=== PATIENT | female | born 1930 | race Caucasian/White ===

== ENCOUNTER → 2017-06-26 | Outpatient (CLI) | payer OTHER ==
[~2017-06-26] MED LIST: ALEVE220 M1 PO; AMARYL4 MG PO; ASPIRIN EC81 M1 PO; ATORVASTATIN CA40 MG PO; CLOPIDOGREL75 MG; COZAAR 25 MG TA25 M2; LISINOPRIL10 MG PO; LISINOPRIL20 MG PO; METOPROLOL SUCC25 M1; NORCO 5-325 TA1 EACH PO; OXYBUTYNIN 5 MG5 M1 PO; SIMVASTATIN40 MG; VITAMIN D2000 UNIT PO
--- NOTE | ~2017-06-26 | 2DMMODE ---
[facility] [place] [address] 2 D/M-MODE ECHOCARDIOGRAM Name: CHERRIE MCLEAN [facility] #: [facility] [id number] Admission: 06/26/17 Attend Phys: Milad Lane, Discharge: Date of : 32 Date of Service: 06/26/17 1208 Report #: [id number] THIS REPORT FOR: //name// APPROVED REPORT Study performed: 06/26/2017 09:59:24 EXAM: Comprehensive 2D, Doppler, and color-flow Echocardiogram Patient Location: Out-Patient Status: routine BSA: 1.52 HR: 70 bpm BP: 158/83 mmHg Rhythm: NSR Other Information Study Quality: Good Indications CAD Hypertension/HDD Aortic stenosis. Hx: DM, HLD, Stents, ICM 2D Dimensions RVDd: 30.63 mm LVEF(%): 77.14 (>50%) IVSd: 11.23 (7-11mm) LVOT Diam: 18.09 (18-24mm) LVDd: 38.96 mm PWd: 8.95 (7-11mm) Ascending Ao: 29.68 (22-36mm) LVDs: 21.35 (25-40mm) Aortic Root: 28.94 mm Jaime's LVEF: 77.14 % Volumes Left Atrial Volume (Systole) Single Plane 4CH: 81.12 mL Single Plane 2CH: 49.34 mL LA ESV Index: 45.00 mL/m2 Aortic Valve AoV Peak Edvin.: 3.02 m/s AO Peak Gr.: 36.55 mmHg LVOT Max P.93 mmHg AO Mean Gr.: 17.80 mmHg AO V2 Mean: 1.97 m/s LVOT Max V: 1.22 m/s AO V2 VTI: 68.04 cm KEANU Vmax: 1.03 cm2 [facility] [place] [address] 2 D/M-MODE ECHOCARDIOGRAM Name: CHERRIE MCLEAN Room #: REG [facility]#: [id number] Admission: 06/26/17 Attend Phys: Milad Lane, Discharge: Date of : 32 Date of Service: 06/26/17 1208 Report #: [id number] Mitral Valve MV Peak Gr.: 31.50 mmHg MV Mean Gr.: 11.36 mmHg E/A Ratio: 0.6 MV Decel. Time: 923.55 ms MV E Max Edvin.: 1.28 m/s MV A Edvin.: 2.15 m/s MV Max Edvin.: 2.81 m/s MV Mean Edvin.: 1.59 m/s MV VTI: 632.29 mm MV PHT: 267.83 ms IVRT: 83.04 ms Pulmonary Valve PV Peak Edvin.: 1.50 m/s PV Peak Gr.: 8.99 mmHg Pulmonary Vein P Vein S: 0.83 m/s P Vein A: 0.34 m/s P Vein D: 0.45 m/s P Vein A Dur.: 156.9 msec P Vein S/D Ratio: 1.84 Tricuspid Valve TR Peak Edvin.: 2.65 m/s RAP Estimate: 5.00 mmHg TR Peak Gr.: 28.13 mmHg PA Pressure: 33.00 mmHg Left Ventricle The left ventricle is normal size. Mild basal septal hypertrophy is present. Left ventricular systolic function is hyperdynamic. LVEF is >70%. Mild diastolic dysfunction is present (impaired relaxation pattern). Right Ventricle The right ventricle is normal size. The right ventricular systolic function is normal. Atria Left atrium is dilated. The right atrium size is normal. Aortic Valve Aortic valve is moderately thickened and calcified. Trace aortic regurgitation. There is mild to moderate valvular aortic stenosis. Calculated aortic valve area is 1.0 cm2 with maximum pressure gradient of 37 mmHg and mean pressure gradient of 18 mmHg. Mitral Valve [address] [address] 2 D/M-MODE ECHOCARDIOGRAM Name: CHERRIE MCLEAN Room #: REG DORIS Montgomery#: [id number] Admission: 06/26/17 Attend Phys: Milad Lane, Discharge: Date of : 32 Date of Service: 06/26/17 1208 Report #: [id number] There is severe mitral annular calcification. Mitral valve leaflets are moderately thickened. Mild mitral regurgitation. Moderate - severe mitral stenosis. Tricuspid Valve The tricuspid valve is normal in structure. Trace tricuspid regurgitation. Estimated PAP 33 mmHg. Pulmonic Valve The pulmonary valve is normal in structure. Trace pulmonic regurgitation. Great Vessels The aortic root is normal in size. The ascending aorta is normal in size. IVC is normal in size and collapses >50% with inspiration. Pericardium There is no pericardial effusion. <Conclusion> The left ventricle is normal size. Mild basal septal hypertrophy is present. LVEF is >70%. Mild diastolic dysfunction is present (impaired relaxation pattern). The right ventricle is normal size. Left atrium is dilated. Aortic valve is moderately thickened and calcified. Trace aortic regurgitation. There is mild to moderate valvular aortic stenosis. Calculated aortic valve area is 1.0 cm2 with maximum pressure gradient of 37 mmHg and mean pressure gradient of 18 mmHg. There is severe mitral annular calcification. Mitral valve leaflets are moderately thickened. Mild mitral regurgitation. Trace tricuspid regurgitation. Estimated PAP 33 mmHg. The aortic root is normal in size. There is no pericardial effusion. <ELECTRONICALLY SIGNED> By: Milad Lane MD, FACC 06/26/[address] MD, FACC /INF
== END ==
LOC: NUC 07:41
DX: I10 Essential (primary) hypertension (principal); I25.10 Atherosclerotic heart disease of native coronary artery without angina pectoris; I35.0 Nonrheumatic aortic (valve) stenosis; E78.5 Hyperlipidemia, unspecified; E11.9 Type 2 diabetes mellitus without complications

== ENCOUNTER 2020-06-28 20:41 | Inpatient (IN) | payer OTHER ==
[~2020-06-28] VITALS: Ht 160 cm; Wt 44.3 kg
[~2020-06-28 20:41] MED LIST changes: -GLIMEPIRIDE1 MG PO; -LIPITOR 40 MG T40 M1 PO
[2020-06-28 20:45] VITALS: BP 139/84
[2020-06-28 21:35] LABS: HEMATOCRIT 34.4 % (37.0-47.0); HEMOGLOBIN 11.6 gm/dL (12.0-15.0); MCHC 33.7 g/dL (28.0-37.0); MCV 89.1 fL (80.0-100.0); RBC 3.86 mil/uL (4.20-5.00); RDW 16.3 % (10.5-14.5)
[2020-06-28 21:36] LABS: ANION GAP 15 mmol/L (7-16); BUN 7 mg/dL (7-18); CALCIUM 8.6 mg/dL (8.5-10.1); CHLORIDE 102 mmol/L (98-107); CO2 21 mmol/L (21-32); CREATININE 1.1 mg/dL (0.6-1.0); GLUCOSE 81 mg/dL (74-106); POTASSIUM 4.2 mmol/L (3.5-5.1); SODIUM 138 mmol/L (136-145)
[2020-06-28 21:40] LABS: URINE BLOOD 1+ (Negative); URINE CLARITY CLEAR; URINE COLOR YELLOW; URINE GLUCOSE-RANDOM* NEGATIVE (Negative); URINE KETONES 2+ (Negative); URINE NITRITE-REFLEX NEGATIVE (Negative); URINE PROTEIN (DIPSTICK) TRACE (Negative); URINE SPECIFIC GRAVITY >= 1.030 (1.005-1.035); URINE UROBILINOGEN 0.2 E.U./dl (0.2-1.0)
[2020-06-28 21:42] LABS: APTT 29.9 Seconds (24.5-32.8); INR 1.19; PROTIME 12.9 Seconds (10.5-12.1)
[2020-06-28 21:43] LABS: ICTOTEST (BILI CONFIRMATORY) Negative (Negative); URINE BILIRUBIN NEGATIVE (Negative); URINE LEUKOCYTES-REFLEX 2+ (Negative)
[2020-06-28 21:47] LABS: ALBUMIN 2.5 g/dL (3.4-5.0); AMYLASE 38 U/L (25-115); DIRECT BILIRUBIN 0.2 mg/dL (<0.1-0.2); LIPASE 320 U/L (73-393); MAGNESIUM 1.7 mg/dL (1.8-2.4); PHOSPHORUS 2.5 mg/dL (2.5-4.9); SGOT 37 U/L (15-37); SGPT 16 U/L (30-65); TOTAL BILIRUBIN 1.3 mg/dL (0.2-1.0); TOTAL PROTEIN 6.3 g/dL (6.4-8.2); TROPONIN-I <0.06 ng/mL (<0.06)
[2020-06-28 21:50] LABS: HYALINE CASTS 0-3 Few /LPF (None Seen); SQUAMOUS >10 Many /LPF (0-3); URINE RBC 3-10 Few /HPF (NONE SEEN); URINE WBC-REFLEX >25 Many /HPF (0-5)
[2020-06-28 21:51] LABS: CRYSTALS None Seen /LPF (None Seen); YEAST-REFLEX Present (None Seen)
[2020-06-28] MEDS ORDERED: LIPITOR 40 MG T40 M1 PO (21:55)
[2020-06-28] MEDS ORDERED: GLIMEPIRIDE1 MG PO (21:57)
[2020-06-28 22:15] LABS: ABSOLUTE NEUTROPHILS 5.5 thou/uL (1.4-8.2); ANISOCYTOSIS 1+; PLATELET COUNT 212 thou/uL (150-400); PLATELET ESTIMATE NORMAL; POIKILOCYTOSIS 1+
[2020-06-28 22:55] VITALS: BP 122/68
--- NOTE | 2020-06-28 23:46 | NUR ---
Pt transported on ER [facility] to room 202 @ 2340 with IVF continued. Pt has possessions with her. Admission started on pt with attempt to for her to sign. assessment as charted. possible stress test tommorrow. NPO at the moment. continue with plan of care
[2020-06-29 00:02] VITALS: BP 119/64
[2020-06-29 04:37] VITALS: BP 124/73
[2020-06-29 05:23] LABS: CALCIUM 8.3 mg/dL (8.5-10.1); CREATININE 1.1 mg/dL (0.6-1.0)
--- NOTE | 2020-06-29 07:06 | EKG ---
[address] [place] [employer] [place] [address] ELECTROCARDIOGRAM REPORT Name: CHERRIE MCLEAN Room #: 202-P ADM IN M.R.#: [id number] Admission: 06/28/20 Attend Phys: Juan Parsons MD Discharge: Date of : 32 Report #: [id number] [facility] ED Test Date: 2020-06-28 Test Time: 20:50:55 Pat Name: CHERRIE MCLEAN Department: Room: 202 Gender: F Consulting Solution Manager: MULUGETA : 1930 Requested By: Joselito Presley Order Number: [id number] MD: Juan Foster Measurements Intervals [place] Rate: 81 P: 67 ID: 160 QRS: -35 QRSD: 128 T: 0 QT: 436 QTc: 506 Interpretive Statements Sinus rhythm Right bundle branch block Inferolateral infarct, age indeterminate Compared to ECG 06/03/2012 07:26:49 Right bundle-branch block now present Left anterior fascicular block no longer present Myocardial infarct finding still present Electronically Signed On 06-29-2020 7:06:34 CDT by Juan Foster [email or web address] <ELECTRONICALLY SIGNED> By: Juan Foster MD, [facility] 06/29/20705 49 49 Juan Foster MD, [facility] /EPI
[2020-06-29 07:26] VITALS: BP 104/55
[2020-06-29 11:30] VITALS: BP 111/57
--- NOTE | 2020-06-29 11:30 | NUR ---
to nuclear med for stress test.
--- NOTE | 2020-06-29 11:30 | NUR ---
remained npo. nuclear med previously present for iv injection prior to nuclear med stress test. at 1130, transported to nuclear [facility].
--- NOTE | 2020-06-29 13:26 | NUR ---
PT PRESENTED TO INPATIENT PACKAGER FOR STRESS TEST. THE LEXISCAN WAS GIVEN PER PROTOCOL AND VITALS AND ECG WERE MONITORED. POST PROCEDURE THE PATIENT BECAME PALE, EXPERIENCED CHEST AND ARM HEAVINESS, AND VOMITED 300CC OF BROWN EMESIS. PER PROTOCOL AMINOPHYLLINE 50MG WAS GIVEN OVER 30-60 SECONDS AND THE PATIENT WAS MONITORED. THE PATIENT RECOVERED AFTER THE REVERSAL WAS ADMINISTERED. ALSO THE PATIENT RECIEVED 4MG OF ZOFRAN FOR THE BOUT OF EMESIS. THE PATIENT CONTINUED TO BE MONITORED, AND STATED, " SHE FELT MUCH BETTER". NUCLEAR MED WAS MADE AWARE, WELL THE CCU NURSE FOR THE PATIENT.
--- NOTE | 2020-06-29 14:15 | NUR ---
returned from nuclear meds stress test. denies any discomfort or cardiac symptoms at this time. son at bedside providing support.
--- NOTE | 2020-06-29 14:33 | EKG ---
[address] [address] ELECTROCARDIOGRAM REPORT Name: CHERRIE MCLEAN Room #: 202-P ADM IN M.R.#: [id number] Admission: 06/28/20 Attend Phys: Juan Parsons MD Discharge: Date of : 32 Report #: [id number] [facility] ED Test Date: 2020-06-28 Test Time: 22:25:48 Pat Name: CHERRIE MCLEAN Department: Room: 202 P Gender: F Training Program Developer: WILFRID : 1930 Requested By: Josleito Presley Order Number: [id number] MD: Juan Foster Measurements Intervals [place] Rate: 97 P: 48 VT: 164 QRS: 124 QRSD: 132 T: 89 QT: 387 QTc: 492 Interpretive Statements Sinus rhythm Probable left atrial enlargement RBBB and LPFB Inferolateral infarct, old Compared to ECG 06/28/2020 20:50:55 Left posterior fascicular block now present Myocardial infarct finding still present Electronically Signed On 06-29-2020 14:33:11 CDT by Juan Foster [email or web address] <ELECTRONICALLY SIGNED> By: Juan Foster MD, FACC 06/29/20 1433 Juan Foster MD, [facility] /EPI
[2020-06-29 16:14] VITALS: BP 101/52
--- NOTE | 2020-06-29 16:45 | NUR ---
dr. crooks present. when stopcock opened biliary drain patent with very dark drainage. son remains at bedside providing support.
[2020-06-29 19:09] VITALS: BP 101/53
--- NOTE | 2020-06-30 02:41 | NUR ---
forgets to call for assist out of bed to the bsc. she uses her brief for most urine outputs. denies pain. no chest pain. spoke with her dtr angie, updated the DPOA information in her history. pt is weak and needs help with ambulating if she does get up. careplan reviewed.
[2020-06-30 03:50] LABS: HEMATOCRIT 30.5 % (37.0-47.0); HEMOGLOBIN 10.5 gm/dL (12.0-15.0); MCH 30.4 pg (26.0-34.0); MCHC 34.3 g/dL (28.0-37.0); MCV 88.7 fL (80.0-100.0); RBC 3.44 mil/uL (4.20-5.00); RDW 15.9 % (10.5-14.5); WBC 4.9 thou/uL (4.0-11.0)
[2020-06-30 04:09] LABS: ALBUMIN 2.1 g/dL (3.4-5.0); CALCIUM 8.1 mg/dL (8.5-10.1); CREATININE 1.1 mg/dL (0.6-1.0); POTASSIUM 3.7 mmol/L (3.5-5.1); TOTAL BILIRUBIN 0.7 mg/dL (0.2-1.0); TOTAL PROTEIN 5.3 g/dL (6.4-8.2)
[2020-06-30 04:16] VITALS: BP 107/54
[2020-06-30 07:00] VITALS: BP 103/46
[2020-06-30 12:03] VITALS: BP 103/46
[2020-06-30 12:09] VITALS: BP 98/47
--- NOTE | 2020-06-30 13:10 | NUR ---
ASSESSMENT CHARTED - MEDS PER APR - MEDS CRUSHED ( EXCEPT TOPROL) AND GIVEN IN [place] - NO PROBLEMS WITH SWALLOWING THEM. PT SEEN BY PHY THERAPY - MARCELINA CLEAR LIQUID DIET. NO CO'S OF PAIN OR NAUSEA - PT DISCHARGED THIS AFTERNOON. INSTRUCTION RE HOME MEDS/ CARE AND FOLLOW UP GIVEN TO SON - HE STATED UNDERSTANDING OF INSTRUCTIONS GIVEN AND HAD NO QUESTIONS. INFORMED HIM THAT DR ZARCO WOULD CALL HIM AND LET HIM KNOW WHEN SURGERY WOULD BE. PT LEFT UNIT VIA WHEELCHAIR - HOME WITH SON VIA PVT VEHICLE. NO CO'S AT TIME OF D/C.
[2020-06-30 14:48] VITALS: BP 103/46
--- NOTE | 2020-06-30 15:15 | NUR ---
Cm assessment completed with the pt and son at bedside. Pt lives at home with family and currently has services. They believe it is through [facility]. [facility] contacted and they are current with the pt for RN,PT,and OT. Pt dcing home today with family and would like to continue using [facility]. Referral and dc orders faxed to intake. They will resume their visits early next week. No other needs noted. Pt to f/u with Dr. Solares for gallbladder surgery in the near future.
== END 2020-06-30 13:05 | disposition home health service (06) | DRG 302 ==
LOC: ER 20:41 → EROBS 22:26 → 2N 22:26
PROVIDERS: Emergency Medicine; Nurse Practitioner Family; Surgery; ADMIT Hospitalist; ATTEND Hospitalist
DX: I25.110 Atherosclerotic heart disease of native coronary artery with unstable angina pectoris (principal); E43 Unspecified severe protein-calorie malnutrition; R65.11 Systemic inflammatory response syndrome (SIRS) of non-infectious origin with acute organ dysfunction; J96.00 Acute respiratory failure, unspecified whether with hypoxia or hypercapnia; I50.33 Acute on chronic diastolic (congestive) heart failure; N39.0 Urinary tract infection, site not specified; Z68.1 Body mass index [BMI] 19.9 or less, adult; I11.0 Hypertensive heart disease with heart failure; R07.89 Other chest pain; E11.9 Type 2 diabetes mellitus without complications; I10 Essential (primary) hypertension; E78.5 Hyperlipidemia, unspecified; I35.0 Nonrheumatic aortic (valve) stenosis; I05.0 Rheumatic mitral stenosis; Z79.82 Long term (current) use of aspirin; I25.2 Old myocardial infarction; Z95.5 Presence of coronary angioplasty implant and graft; Z79.899 Other long term (current) drug therapy
CPT/HCPCS: 10081

== ENCOUNTER → 2020-06-28 | Outpatient (CLI) | payer OTHER ==
[~2020-06-28] MED LIST changes: +GLIMEPIRIDE1 MG PO; +LIPITOR 40 MG T40 M1 PO
== END ==
LOC: SJCVC 10:07 → SJCVCIMAG 10:07
PROVIDERS: ATTEND Internal Medicine Cardiovascular Disease
DX: I08.0 Rheumatic disorders of both mitral and aortic valves (principal); I11.9 Hypertensive heart disease without heart failure; R94.31 Abnormal electrocardiogram [ECG] [EKG]; I45.10 Unspecified right bundle-branch block; I25.10 Atherosclerotic heart disease of native coronary artery without angina pectoris; E78.00 Pure hypercholesterolemia, unspecified; E11.9 Type 2 diabetes mellitus without complications; E78.5 Hyperlipidemia, unspecified; Z79.82 Long term (current) use of aspirin; Z79.899 Other long term (current) drug therapy; Z82.49 Family history of ischemic heart disease and other diseases of the circulatory system

== ENCOUNTER 2020-07-18 06:31 | Observation (INO) | payer OTHER ==
[~2020-07-18] VITALS: Ht 152.4 cm; Wt 49.0 kg
--- NOTE | ~2020-07-18 | HC ---
[facility] [place] [address] CONSULTATION Name: CHERRIE MCLEAN Room #: 201-P [facility] M.R.#: [id number] Admission: 07/18/20 Attend Phys: Herbert Solares MD Discharge: Date of : 32 Report #: [id number] THIS REPORT FOR: cc: Lashaun Cantu MD, Paula V. MD Lundgren, Craig H. MD [facility] ~ DOC #: [id number] William Brown MD [facility] REASON FOR CONSULTATION: Preoperative evaluation, coronary artery disease. HISTORY OF PRESENT ILLNESS: The patient is an 89-year-old woman who is a patient of Dr. Milad Lane. She has had a fernnado past couple of months with admission to [facility] earlier in the year with septic shock related to choledocholithiasis and cholangitis. Troponin was elevated in this setting. Due to at least moderately severe aortic stenosis and mitral stenosis, it was elected to place a percutaneous gallbladder drain rather than undergo ERCP and a surgical excision of the gallbladder. She was readmitted to [facility] on 06/28 with chest pain. This pain had mixed features for ischemia. Troponin was minimally elevated at 0.94. This is in the setting of known established coronary artery disease with a remote bare metal stenting to the LAD and right coronaries with known occlusion of the circumflex with collateralization. Remote stress study was consistent with this disease as well a stress study that was performed during her more recent June hospitalization. Medical therapy was recommended. At that time, her gallbladder drain was "kink closed" and repositioned and resumed normal draining during that hospitalization. Whether this was related to her discomfort or not is uncertain. Nevertheless, she has had no recurrent chest pain or pressure. She now presents for laparoscopic cholecystectomy. There have been no heart failure symptoms. She denies palpitations, near syncope, or syncope. ALLERGIES: No known drug allergies. MEDICATIONS: Include aspirin 81 mg daily, atorvastatin 40 mg daily, clopidogrel 75 mg daily, glimepiride 0.5 mg daily, lisinopril 20 mg daily, metoprolol succinate 25 mg daily and oxybutynin 5 mg twice daily. PAST MEDICAL HISTORY: Her past history and medical records have been reviewed and include a history of at least moderately severe aortic stenosis, moderately severe mitral stenosis, diabetes, dyslipidemia, hypertension, macular degeneration, coronary artery disease with stenting of the LAD and right coronaries in 05/2012. SOCIAL HISTORY: She has never been a smoker, nondrinker. FAMILY HISTORY: Notable [place] [address] CONSULTATION Name: CHERRIE MCLEAN Room #: 201-P [facility] M.R.#: [id number] Admission: 07/18/20 Attend Phys: Herbert Solares MD Discharge: Date of : 32 Report #: [id number] REVIEW OF SYSTEMS: All systems negative except as that noted above. PHYSICAL EXAMINATION: GENERAL: Reveals a frail elderly woman in no distress. VITAL SIGNS: Blood pressure 100/47, heart rate is 66 and regular. She is afebrile, 5 feet tall, 108 pounds. There are neither xanthelasma, subcutaneous xanthomata. HEENT: Oral mucosal or digital cyanosis or kyphoscoliosis present. CHEST: Clear to auscultation and percussion. CARDIAC: Reveals a 3/6 systolic ejection murmur at the base. ABDOMEN: Soft and nontender. EXTREMITIES: Without cyanosis, clubbing or edema. Radial pulses are 2+. NEUROLOGIC: She is alert with a nonfocal exam. EKG, sinus rhythm with right bundle branch block, old inferolateral infarct. Echocardiogram reviewed. ASSESSMENT: 1. Coronary artery disease, clinically stable. 2. Recent septic shock related to choledocholithiasis with cholangitis, resolved. 3. Hypertension. 4. Diabetes. 5. Dyslipidemia. 6. Aortic and mitral stenosis. RECOMMENDATIONS: 1. Continued efforts towards aggressive risk factor modification. 2. Her recent pharmacologic stress study was reviewed and consistent with her known/established coronary disease. She has had no angina or unstable ischemic symptoms. Volume status is stable. She is at probably moderate cardiovascular risk given her comorbidities. There are no contraindications to proceeding from a cardiovascular standpoint. I have discussed these issues with the patient and her family in detail. This has been discussed with Dr. Herbert Solares. Thank you for asking me to participate in her care. William Brown MD [facility]/[address] [address] CONSULTATION Name: CHERRIE MCLEAN Room #: 201-P [facility] Adilia Pat.Merlin#: [id number] Admission: 07/18/20 Attend Phys: Herbert Solares MD Discharge: Date of : 32 Report #: [id number] By: 1419 2327 William Brown MD, FACC /nt
[~2020-07-18 06:31] MED LIST changes: +CLOPIDOGREL75 MG PO; +GLIMEPIRIDE1 MG PO; +LIPITOR 40 MG T40 M1 PO; +METOPROLOL SUCC50 MG PO; +PRINIVIL20 MG PO
[2020-07-18 07:48] LABS: HEMATOCRIT 35.3 % (37.0-47.0)
[2020-07-18 08:16] VITALS: BP 97/47
[2020-07-18 13:10] VITALS: BP 92/53
[2020-07-18 13:30] VITALS: BP 92/53
[2020-07-18 16:00] VITALS: BP 106/58
--- NOTE | 2020-07-18 16:10 | EKG ---
[address] [address] ELECTROCARDIOGRAM REPORT Name: CHERRIE MCLEAN Room #: 201-[facility] M.R.#: [id number] Admission: 07/18/20 Attend Phys: Herbert Solares MD Discharge: Date of : 32 Report #: [id number] [facility] Test Date: 2020-07-18 Test Time: 15:48:28 Pat Name: CHERRIE MCLEAN Department: Room: 201 Gender: F Tutoring Clinician: FSCHWALBE : 1930 Requested By: William Brown Order Number: [id number] MD: Juan Foster Measurements Intervals [place] Rate: 79 P: 40 OK: 183 QRS: -81 QRSD: 134 T: 34 QT: 444 QTc: 510 Interpretive Statements Sinus rhythm Right bundle branch block Inferolateral infarct, age indeterminate Compared to ECG 06/28/2020 22:25:48 Left posterior fascicular block no longer present Myocardial infarct finding still present Electronically Signed On 07-18-2020 16:10:28 CDT by Juan Foster [email or web address] <ELECTRONICALLY SIGNED> By: Juan Foster MD, [facility] 07/18/20 1610 1548 1548 Juan Foster MD, [facility] /EPI
--- NOTE | 2020-07-18 18:06 | NUR ---
PT CARE ASSUMED AT 1330. ASSESSMENTS CHARTED. MEDICATIONS CHARTED. LW IV. SINUS RHYTHM, TELEMETRY MODULE NEEDED REPAIR READ 'WRONG CHANNEL'. HAND/BSC. DIET: CLEAR LIQUID. COVID VACCINE X 2; MODERNA. PT PREFERS PILLS CRUSHED, PT TAKES QUITE A WHILE TO SWALLOW WHOLE PILLS.
[2020-07-18 20:52] VITALS: BP 114/53
[2020-07-19] VITALS (7 sets, daily range): BP systolic 88–108; BP diastolic 40–62
--- NOTE | 2020-07-19 03:40 | NUR ---
ASSESSMENTS CHARTED, MEDS CHARTED GIVEN. PATIENT RESTING IN BED DURING SHIFT. SPOKE WITH DAUGHTER/DPOA. MAINTENANCE FLUID AND ANTIBIOTIC IV DURING SHIFT. 4 LAP SITE DRESSINGS DRY AND INTACT. FALL PRECAUTIONS IN PLACE DURING SHIFT.
[2020-07-19] MEDS ORDERED: HYDROCODON-ACE1 EAC7 PO (11:45)
--- NOTE | 2020-07-19 17:24 | NUR ---
PT IS AXOX4, SOMEWHAT SOMNOLENT. C/O SOME PAIN FROM LAP VALDO SITES. SITES C/D/I. VS BP SOFT, 90s/50s, AFEBRILE, SR ON THE MONITOR. FALL PRECAUTIONS IN PLACE. PT SON AT THE BEDSIDE. PT ON CLEAR LIQUID DIET. PT TO D/C HOME. DR ZARCO CONSULTED, DR PANIAGUA CONSULTED. RX LISINOPRIL D/C FOR LOW BP. PT AND PT SON COMMUNICATED UNDERSTANDING FOR RX AND FOLLOW UP. PT DTR CALLED. PT D/C HOME WITH SON VIA PERSONAL VEHICLE.
--- NOTE | 2020-07-20 12:35 | O ---
[facility] [place] [address] OPERATIVE REPORT Name: CHERRIE MCLEAN Room #: 201-P [facility] Adilia Montgoemry#: [id number] Admission: 07/18/20 Attend Phys: Herbert Solares MD Discharge: 07/19/20 Date of : 32 Report #: [id number] THIS REPORT FOR: cc: Lashaun Cantu MD, Paula V. MD Chu,Herbert Casey MD ~ DOC #: [id number] cc: MD Herbert Traylor MD DATE OF SERVICE: 07/18/2020 PREOPERATIVE DIAGNOSIS: Cholecystitis with cholelithiasis, recent cholangitis from common duct stone. POSTOPERATIVE DIAGNOSIS: Cholecystitis with cholelithiasis, recent cholangitis from common duct stone. PROCEDURE PERFORMED: Laparoscopic cholecystectomy with cholangiogram. ANESTHESIA: General. SURGEON: Herbert Solares MD ESTIMATED BLOOD LOSS: 30 mL. FINDINGS: Gallbladder contained numerous stones. Dilated cystic duct. No stone identified in the cystic duct. COMPLICATIONS: None. DESCRIPTION OF PROCEDURE: With the patient under general anesthesia, abdomen was prepped and draped in sterile fashion. IV antibiotic was administered. Time out was performed. Marcaine 0.25% was used to anesthetize the skin, 2 cm incision was made infraumbilically. Fascia was identified. Fascia grasped with hemostat. Fascia was then opened under visualization, 0 Vicryl sutures were placed on the fascial edges for retraction. Veress needle was then placed through the peritoneum. Abdominal cavity was insufflated with CO2. After creating pneumoperitoneum, an 11 mm trocar was placed through the posterior fascia, peritoneum under visualization. No harm to the underlying tissue. The two 5 mm trocars were placed in right upper quadrant. Another 5 mm trocar was placed in the epigastrium. These were placed under laparoscopic guidance. The patient was placed in the reverse Trendelenburg position, right side tilted up. The drain is seen coming in from the right upper quadrant, going through the liver and then into the gallbladder. Gallbladder was present and decompressed. The gallbladder was still somewhat thickened. The omentum was wrapped around [address] [address] OPERATIVE REPORT Name: CHERRIE MCLEAN Room #: 201-P [facility] Adilia Montgomery#: [id number] Admission: 07/18/20 Attend Phys: Herbert Solares MD Discharge: 07/19/20 Date of : 32 Report #: [id number] the drain. This was easily. The drain was then divided just beyond the skin and then with the drain divided, the drain was then removed without difficulty from the gallbladder. This was dropped off the field. The gallbladder was lifted over the liver. There were some thin adhesions around the gallbladder and these were taken down without difficulty. Gallbladder was fairly elongated. Her gallbladder was hydropic when she was hospitalized at [facility] in May. It did appear that there was a stone in the distal common duct. The ____ was just about going to pass into the intestine. Followup CT does not show the stone present in the common duct anymore consistent with her passing that stone. The proximal part of the gallbladder was identified and it was folded on the cystic duct. Cystic artery was identified. Because of the gallbladder being dilated and enlarged, the cystic artery was felt to be also pretty prominent in size. The artery was from the lymph node from the cystic duct and then the artery could be seen going on the gallbladder wall along the medial aspect of the gallbladder. Artery was clipped x2 proximally, 1 distally, then divided. This allowed better view of the cystic duct. The cystic duct was freed. The cystic duct is pretty dilated to about 8 mm or so. Clip was placed at the junction of the cystic duct and the gallbladder, opening was made in the cystic duct. Cholangiogram catheter was easily placed in the cystic duct, difficulty was holding and placing catheter. Using a clip to hold the catheter and sealing it. There was a little bit of dye extravasation to the cannulation site. Dye did go down in the common duct. Fluoroscopic cholangiogram was obtained. The cholangiogram catheter was identified in the cystic duct. There was still a pretty good length of cystic duct and the cystic duct was kind of tortuous and then it goes to the common duct. The distal duct filled out first and the dye flowed into the duodenum. There is no definite stone and maybe some edema in the distal common duct. The upper duct also filled out on the injection and then I repeated it to get a better filling of the proximal duct. Proximal duct is normal. The cholangiogram catheter was then removed. The proximal cystic duct was clipped with one clip. Cystic duct was divided. Because of the dilated size of cystic duct, a 0 PDS Endoloop was placed across the cystic duct just proximal to the clip that I put on. There is a posterior artery. This was isolated, clipped x2 proximally, one distally and divided. This was found in pretty thickened tissue. Also, when the gallbladder was freed from the liver bed, there was another stone that was more medially located. This was also isolated and clipped. The gallbladder was somewhat thin when I first started taking the gallbladder off the liver bed. With retraction of this area, the gallbladder opened up and the stones fell out of it. There were multiple stones, they are all measured about 5-6 mm in size. These were isolated and later removed in the specimen bag. Once the gallbladder was free, gallbladder was placed in a specimen bag. The stones that were identified were placed in a specimen bag. Specimen bag with the gallbladder and the stones were extracted. There were 5 or 6 other little stones that were identified under the liver and along the lateral edge of the liver. These were extracted with a 5 mm trocar without difficulty. With further inspection using [facility] [place] [address] OPERATIVE REPORT Name: CHERRIE MCLEAN Room #: 201-P [facility].R.#: [id number] Admission: 07/18/20 Attend Phys: Herbert Solares MD Discharge: 07/19/20 Date of : 32 Report #: [id number] a 30-degree scope, I did not see any other stone that were free or left in the abdomen. Hemostasis was obtained. Surgicel was placed over the gallbladder bed. CO2 was evacuated. Trocar was then removed. The inferior umbilical fascia defect was closed with [id number] 0 Vicryl x2. Skin was irrigated, closed with 5-0 PDS. Steri-Strip and Band-Aids applied. Band-Aid was also placed at the previous drain site. The patient tolerated the procedure well and was stable through the surgery from cardiac standpoint. MD CHELSEA Morse/LORE/LEXII <ELECTRONICALLY SIGNED> By: Herbert Solares MD 07/20/20 1235 49 16 Herbert Solares MD /nt
--- NOTE | 2020-07-20 15:08 | PATH ---
[facility] [address] [place] [address] PATHOLOGY RPT PROCEDURE Name: CHERRIE MCLEAN Room #: 201-P ARCHIE BrooksRJaneen#: [id number] Admission: 07/18/20 Date of : 34 Discharge: 07/19/20 Report #: [id number] Path Case #: [id number] L[facility] Accession Number: [id number] . 01 Material submitted: . gallbladder - GALLBLADDER . 01 Clinical history: . LAPAROSCOPIC CHOLECYSTECTOMY WITH G ACUTE CHOLECYSTITIS WITH COLELITHIASIS . 02 Diagnosis: Gallbladder, cholecystectomy: - Moderate acute cholecystitis. - Cholelithiasis. . (IUV:kristofer; 07/20/2020) QMS 07/20/2020 1345 Local . 02 Electronically signed: . Magy Pizano MD, Pathologist NPI- [id number] . 01 Gross description: . Fixative: Formalin Labeled: Gallbladder Specimen received: A previously opened gallbladder Dimensions: 8.0 x 3.0 x 2.0 cm Serosa: Dull pink-alejandro/mathias Lymph node: Not present Mucosa: Velvety alejandro-brown Average wall thickness: 0.2-0.4 Calculi: Multiple round black calculi ranging from 0.2-0.4 cm (in the specimen and container) Abnormalities: Sectioning reveals a firm alejandro brown lesion along the wall measuring 1.0 x 0.6 x 0.6 cm. A1- Writer Producer body, fundus, and the cystic duct margin. A2-printing sales representative sections of the firm wall lesion (BLJ; 07/19/2020) BLJ/BLJ 07/20/2020 1344 Local . 02 Pathologist provided ICD-10: K80.00 . 02 CPT . 089669 Specimen Comment: A courtesy copy of this report has been sent to [phone] [place] [id number] PATHOLOGY RPT PROCEDURE Name: CHERRIE MCLEAN Room #: 201-P ARCHIE Montgomery#: [id number] Admission: 07/18/20 Date of : 34 Discharge: 07/19/20 Report #: [id number] Path Case #: [id number] Specimen Comment: Report sent to / DR DOLL Performed at: 01 [facility] [place] [address], [place] [id number] MD Marco A Carrera MD Phone: [phone] Performed at: [address] [id number] MD Magy Pizano MD Phone: [phone]
== END 2020-07-19 17:33 | disposition home or self-care (01) ==
LOC: OR 06:31 → TBA 06:31 → OR 06:37 → TBA 12:51 → 2N 12:57
PROVIDERS: ADMIT Surgery; ATTEND Surgery
DX: K80.10 Calculus of gallbladder with chronic cholecystitis without obstruction (principal); Z20.822 Contact with and (suspected) exposure to COVID-19; I10 Essential (primary) hypertension; E78.5 Hyperlipidemia, unspecified; I25.110 Atherosclerotic heart disease of native coronary artery with unstable angina pectoris; I35.0 Nonrheumatic aortic (valve) stenosis; Z79.84 Long term (current) use of oral hypoglycemic drugs; Z79.899 Other long term (current) drug therapy
CPT/HCPCS: 50010; 50101; 50411; 50555; 50558; 51297; 51489; 51687; 52265; 53307; 53310; 55245; 55317; 56462; 56525; 56526; 58574; 62110; 62900; 65020; 70005

== ENCOUNTER 2020-11-02 03:24 | Inpatient (IN) | payer OTHER ==
[2020-11-02] VITALS (8 sets, daily range): BP systolic 98–170; BP diastolic 49–97
[~2020-11-02] VITALS: Ht 152.4 cm; Wt 34.5 kg
[~2020-11-02 03:24] MED LIST changes: +HYDROCODON-ACE1 EAC7 PO
[2020-11-02 05:02] LABS: URINE BILIRUBIN 2+ (Negative); URINE BLOOD TRACE (Negative); URINE CLARITY CLOUDY; URINE COLOR YELLOW; URINE GLUCOSE-RANDOM* NEGATIVE (Negative); URINE KETONES TRACE (Negative); URINE NITRITE-REFLEX NEGATIVE (Negative); URINE PROTEIN (DIPSTICK) NEGATIVE (Negative); URINE SPECIFIC GRAVITY >= 1.030 (1.005-1.035); URINE UROBILINOGEN 0.2 E.U./dl (0.2-1.0)
[2020-11-02 05:09] LABS: ABSOLUTE NEUTROPHILS 5.7 thou/uL (1.4-8.2); BASOPHILS 0.5 % (0.0-2.0); EOSINOPHILS 0.2 % (0.0-3.0); HEMOGLOBIN 12.8 gm/dL (12.0-15.0); LYMPHOCYTES 17.6 % (24.0-44.0); MCH 32.5 pg (26.0-34.0); MCHC 34.6 g/dL (28.0-37.0); MCV 93.8 fL (80.0-100.0); MONOCYTES 7.2 % (1.0-8.0); PLATELET COUNT 183 thou/uL (150-400); POLYS 74.5 % (36.0-66.0); RBC 3.95 mil/uL (4.20-5.00); RDW 17.8 % (10.5-14.5); WBC 7.7 thou/uL (4.0-11.0)
[2020-11-02 05:12] LABS: URINE LEUKOCYTES-REFLEX 3+ (Negative)
[2020-11-02 05:15] LABS: ALBUMIN 2.5 g/dL (3.4-5.0); CALCIUM 9.4 mg/dL (8.5-10.1); CREATININE 1.6 mg/dL (0.6-1.0); TOTAL PROTEIN 5.3 g/dL (6.4-8.2)
[2020-11-02 05:18] LABS: POTASSIUM 2.6 mmol/L (3.5-5.1)
[2020-11-02 05:20] LABS: SQUAMOUS >10 Many /LPF (0-3)
[2020-11-02 05:21] LABS: CALCIUM OXALATE 4-10 Moderate /LPF (None Seen); CASTS None Seen /LPF (None Seen); MUCUS 4-6 Moderate strn/LPF (None Seen); URINE RBC 3-10 Few /HPF (NONE SEEN)
--- NOTE | 2020-11-02 06:45 | NUR ---
REPORT GIVEN TO [facility] RN. PHARMACY AWARE OF NEED TO SEND STAT DOSE OF RECTAL ASPIRIN. I HAVE NOT RECEIVED IT YET BUT I WILL ADMINISTER WHEN IT ARRIVES. TRANSPORTED TO ROOM 438 BY EDGE DRUMMER.
--- NOTE | 2020-11-02 10:36 | NUR ---
ASSUMED PT CARE FROM ED AT 0800. PT IS ABLE TO ANSWER YES AND NO QUESTIONS. PT HAS IV SITE ON RAC. PT HAS TELE MONITOR AND HAND. PT IS ON ROOM AIR. INFUSING POTASSIUM IV RIGHT NOW DUE TO LOW POTASSIUM. AWAITING FOR SPEECH EVAL. PT IS ACCUCHECK ACHS. WILL CONTINUE TO MONITOR PT. FOLLOW POC.
--- NOTE | 2020-11-02 13:58 | NUR ---
Case opened to follow for dc planning. Hospice consult rec'd. Sons here this am and dtr coming in at 2pm to meet with cm to discuss options for hospice at home or in a detention. Will follow.
[2020-11-03 00:21] VITALS: BP 100/54
--- NOTE | 2020-11-03 03:41 | NUR ---
REPOSITIONING PROVIDED. PT MOSTLY WITH EYES CLOSED SLIGHT MOANING. PALE LOOKING. IVF INFUSING. DARK YELLOW URINE NOTED IN HAND. SOME SMEARS OF BM EARLIER NOTED. AFEBRILE. LOW BP WELL BRADYCARDIA ON TELE. ROOM AIR SATTING ABOVE 95%.WILL CONTINUE WITH FREQUENT CHECKS AND CARE.
[2020-11-03 08:43] VITALS: BP 98/44
--- NOTE | 2020-11-03 10:41 | NUR ---
ASSUMED PT CARE AROUND 0700. PT ALERT X ORIENTED X SELF. ON ROOM AIR. IV RT AC/ FLUIDS INFUSING. ON PUREED DIET, NOT EATING MUCH. REPOSITIONINH Q 2HRS. MEDS CRUSHED AND GIVEN WITH PUDDING. FAMILY IN THE ROOM. HAND CATHETER IN PLACE. FALL PRECAUTION IN PLACE. WILL CONTINUE TO MONITOR.
--- NOTE | 2020-11-03 11:09 | NUR ---
Assess due to high nutrition screening risk. Chart reviewed and family speaking with hospice. ST has evaluated and placed on puree diet with nectar thick liquids and has ensure pudding ordered. Defer further nutrition eval at this time
--- NOTE | 2020-11-03 12:26 | EKG ---
[place] [address] [address] [facility] [address] ELECTROCARDIOGRAM REPORT Name: CHERRIE MCLEAN Room #: 438-P ADM IN M.R.#: [id number] Admission: 11/02/20 Attend Phys: Juan Parsons MD Discharge: Date of : 34 Report #: [id number] [facility] ED Test Date: 2020-11-02 Test Time: 03:50:31 Pat Name: CHERRIE MCLEAN Department: Room: [facility] Gender: F Tobacco Sorter: julio cesar gilmore : 1930 Requested By: Lucian Fulton Order Number: [id number] MD: William Brown Measurements Intervals [place] Rate: 73 P: 70 OH: 137 QRS: -90 QRSD: 124 T: 68 QT: 438 QTc: 483 Interpretive Statements Sinus rhythm Probable left atrial enlargement Right bundle branch block Inferolateral infarct, old Compared to ECG 07/18/2020 15:48:28 No significant changes Electronically Signed On 11-03-2020 12:26:19 CDT by William Brown [email or web address] <ELECTRONICALLY SIGNED> By: William Brown MD, [facility] 11/03/20 1226 0350 0350 William Brown MD, [facility] /EPI
--- NOTE | 2020-11-03 12:46 | NUR ---
Followup visit with pt's dtr Yumiko at bedside this am. Family [facility] this am and are concerned about low bp and wanting to consider possible GIP with [facility] if they were to go full comfort measures. They are discussing as a family. The attending was updated. [facility] can arranged for admission at home tomorrow morning if they desire. Mara faxed referral and their liason is coming to eval for GIP as an alternate option. Awaiting their imput and family decision. Support provided. Completed outside the hospital DNR form is on the chart. will follow.
== END 2020-11-03 14:14 | disposition hospice, inpatient (51) | DRG 682 ==
LOC: ER 03:24 → EROBS 05:44 → 4S 05:44
PROVIDERS: Emergency Medicine; ADMIT Hospitalist; ATTEND Hospitalist
DX: N17.9 Acute kidney failure, unspecified (principal); E43 Unspecified severe protein-calorie malnutrition; N39.0 Urinary tract infection, site not specified; E87.0 Hyperosmolality and hypernatremia; Z68.1 Body mass index [BMI] 19.9 or less, adult; I25.10 Atherosclerotic heart disease of native coronary artery without angina pectoris; E78.5 Hyperlipidemia, unspecified; E87.6 Hypokalemia; I35.0 Nonrheumatic aortic (valve) stenosis; N18.9 Chronic kidney disease, unspecified; R62.7 Adult failure to thrive; Z66 Do not resuscitate; H35.30 Unspecified macular degeneration; E86.0 Dehydration; I05.0 Rheumatic mitral stenosis; Z20.822 Contact with and (suspected) exposure to COVID-19; E11.22 Type 2 diabetes mellitus with diabetic chronic kidney disease; I12.9 Hypertensive chronic kidney disease with stage 1 through stage 4 chronic kidney disease, or unspecified chronic kidney disease; R53.81 Other malaise; N32.81 Overactive bladder; B96.1 Klebsiella pneumoniae [K. pneumoniae] as the cause of diseases classified elsewhere; I25.2 Old myocardial infarction; Z95.5 Presence of coronary angioplasty implant and graft; Z79.82 Long term (current) use of aspirin; Z79.899 Other long term (current) drug therapy
CPT/HCPCS: 10100

== ENCOUNTER 2020-11-03 14:55 | Inpatient (IN) | payer OTHER ==
[~2020-11-03] VITALS: Ht 154.9 cm; Wt 34.5 kg
[2020-11-03 11:13] VITALS: BP 88/42
--- NOTE | 2020-11-03 16:09 | NUR ---
Pt admitted to [facility] hospice with [facility] today. Pt's dtr/salena Calderon met with their liason and completed admission paperwork. Pt's sons Babak/Hamlet/Claudio are in agreement with the plan of care and all taking turns visiting. Their wastewater design engineer has been called and adult grand children are taking turns coming in this afternoon and evening. Pt appears comfortable. Support provided. DNR on the chart. Will follow for support.
[2020-11-03 17:34] VITALS: BP 98/56
--- NOTE | 2020-11-03 20:01 | NUR ---
PATIENT MOVED TO INPATIENT HOSPICE CARE AROUND 1430. PT ON COMFORT CARE.ALERT X ORIENTED X SELF.HAND IN PLACE. FAMILY IN THE ROOM. IV RT AC/SL. FALL PRECAUTION IN PLACE. HOURLY ROUNDING DONE. ADM HIST, ADM EDU AND ADM ASSESMENT COMPLETED. SHIFT REPORT GIVEN TO BUILDING ATTENDANT.
[2020-11-03 20:32] VITALS: BP 98/52
--- NOTE | 2020-11-04 03:02 | NUR ---
ASSUMED CARE OF PT AT 1900. BEDSIDE REPORT RECIEVED. THOMAS ASSESSMENT COMPLETE. DAUGHTER DIYA AT BEDSIDE. PT IS ON COMFORT CARE. PT IS RESPONSIVE TO VERBAL STIMULI AND DENIES ANY PAIN AT THIS TIME. PER FLACC SCALE, NO S/S INDICATING PAIN OR DISCOMFORT OBSREVED AT THIS TIME. HAND CARE COMPLETE. R FA PIV PATENT INTACT WITH TRANSPARENT DRESSING. PT CONTINUES TO BE ON RA C NO S/S INDICATING DISTRESS. TURNING AND REPOSITIONING PATIENT FOR COMFORT. PT HAD SMALL BM, CLEANED PT, PERICARE PROVIDED, HAND CARE DONE, NEW LINENS AND CHUX. PT STATED SHE WAS COLD, GOT PT WARMED BLANKETS. DENIES ANY OTHER NEEDS AT THIS TIME. WILL CONTINUE TO MONITOR, CALL LIGHT IN REACH.
[2020-11-04 11:02] VITALS: BP 98/52
--- NOTE | 2020-11-04 11:11 | NUR ---
ASSUMED CARE PT AT 0700 THIS MORNING. PT IS ON COMFORT CARE. PT WILL RESPOND TO VOICE IN [place] AND WILL SAY YES OR NO AT TIMES. SKIN INTACT WITH NO TENTING. ASSESSMENTS NOTED IN CHART AND OTHERWISE UNREMARKABLE. FALL PRECAUTIONS ARE IN PLACE. IV IN RT AC WITH SL. MEDS AND TX GIVEN NEEDED AND SCHEDULED. WILL MONITOR AND NOTE ANY CHANGES.
[2020-11-04 20:35] VITALS: BP 93/55
--- NOTE | 2020-11-04 23:40 | NUR ---
ASSUMED CARE OF PT AT 1900. BEDSIDE REPORT RECIEVED. FAMILY AT BEDSIDE. THOMAS ASSESSMENT COMPLETE. PT RESUMES ON COMFORT CARE. PT DENIES ANY PAIN AT THIS TIME AND NO S/S INDICATING PAIN OR DISCOMFORT OBSERVED AT THIS TIME PER FLACC SCALE. PT REPORTS FEELING COLD, WARM BLANKETS AND SOCKS PROVIDED. R AC PIV CDI, PATENT. HAND CARE PROVIDED. LINEN AND CHUX CHANGED, BARRIER CREAM APPLIED TO SACRUM. CONTINUING TO REPOSITION FOR COMFORT. ORAL CARE PROVIDED. ALL NEEDS MET. CALL LIGHT IN REACH.
--- NOTE | 2020-11-05 03:45 | NUR ---
I CONCUR WITH THE ASSESSMENT AND NOTE OF PT BY JORI MOORE.
--- NOTE | 2020-11-05 13:11 | NUR ---
COMFORT CARE. A/O X 1. BEDBOUND. RIGHT AC IV SALINE LOCKED-DRESSING DRY, CLEAN, AND INTACT. HAS HAND IN PLACE. SEDIMENT NOTED. NO COMPLAINTS OF PAIN CURRENTLY, SHE IS ABLE TO NOD YES OR NO. HAS BEEN RESTING.
[2020-11-05 19:33] VITALS: BP 94/54
[2020-11-05 21:40] VITALS: BP 94/54
--- NOTE | 2020-11-06 02:39 | NUR ---
UPON SHIFT ASSESSMENT, PT ALERT TO VERBAL AND TACTILE STIMULATION. PT NODS TO RESPOND YES OR NO TO PROMPTS. PT DENIES PAIN AND SOB WHILE ON ROOM AIR. PT ASSESSED WITH FLACC OF 1 DUE TO INTERMITTENT GRIMACING. PT HAS PRN IV MORPHINE Q2HR AND PRN IV ATIVAN Q2HR AVAILABLE. PT RESTING THROUGHOUT SHIFT, FREQUENT REPOSITIONING ENCOURAGED, PT NOTED TO SLIGHTLY SHIFT ON HER OWN, INTERMITTENT REFUSING REPOSITIONING ASSISTANCE DUE TO COMFORT. HAND REMAINS IN PLACE, PATENT WITH YELLOW URINE. SENSATION INTACT, CAPILLARY REFILL LESS THAN 3SEC, PERIPHERAL PULSES FAINT THROUGHOUT. PT ENCOURAGED TO NOTIFY STAFF FOR ALL NEEDS, CALL LIGHT WITHIN REACH, BED ALARM ON, BED LOCKED IN LOWEST POSITION, FREQUENT MONITORING WILL CONTINUE.
[2020-11-06 07:30] VITALS: BP 97/56
[2020-11-06 08:00] VITALS: BP 116/70
--- NOTE | 2020-11-06 15:42 | NUR ---
PT CONTINUES ON [facility] GIP SERVICES. RON DUNNE VISITED WITH PT THIS DAY. SHE INDICATED THAT PT'S PREFERRED HOME IS [facility] AND THAT IF NEEDED PT COULD DC TO HOSPICE HOUSE IF DEEMED APPROPRIATE. CM FOLLOWING [facility] DC PLANNING.
--- NOTE | 2020-11-06 19:09 | NUR ---
Assumed pt care at 7am.Pt in bed sleeping on and off and on comfort care. Assessment completed.vss. No distress s/s noted.Oral care given as needed.Pt able to turn self.Traditional care cm and rn here to chack on pt. Updates given. NO verbal c/o. Approx. 250ml urine emptied from pt red this shift. Report off to noc rn.
[2020-11-06 19:28] VITALS: BP 110/69
--- NOTE | 2020-11-07 02:44 | NUR ---
PT IS A/O X1 AND IS ON BEDREST. ROOM AIR. VSS. AFEBRILE. MOUTH CARE GIVEN NEEDED. PT STATES SHE JUST WANTS TO GO HOME. DENIES C/O PAIN OR DISCOMFORT. REQUESTED ORANGE JUICE. PROVIDED. SHE TOOK A FEW SIPS OF WATER, ORANGE JUICE, AND MILK THIS NIGHT. IS ABLE TO REPOSITION SELF IN BED. IS SEEN SITTING UP IN HER BED OFTEN ASKING TO GO HOME. ONCE REORIENTING PT TO SURROUNDINGS SHE SEEMS TO SETTLE WITH LESS ANXIETY. HAND IN PLACE, DRAINING APPROPRIATELY. NO BM THIS SHIFT. FALL PRECAUTIONS IN PLACE, CALL LIGHT IS WITHIN REACH. WILL CONTINUE TO MONITOR.
[2020-11-07 07:28] VITALS: BP 98/55
--- NOTE | 2020-11-07 12:13 | NUR ---
Assumed pt care at 7am. Pt in bed sleeping on and off. Repositioned q2h for comfort.Oral care given as needed. Thicken apple juice given this am by coin machine assembler and well tolerated.No distress s/s noted .Will continue to monitor.
[2020-11-07 20:22] VITALS: BP 101/55
--- NOTE | 2020-11-08 04:13 | NUR ---
ASSUMED PT CARE AT 1900.PT DENIED PAIN SO FAR.PT REPOSITIONED WHILE IN BED.HAND CATH IN PLACE WITH MIN OUTPUT.PT ALERT,NOT VERY VOCAL.PT ON HOSPICE CARE.PT RESTING ON HER BED AT THIS TIME.CALL LIGHT WITHIN REACH.
[2020-11-08 08:26] VITALS: BP 105/54
[2020-11-08 11:53] VITALS: BP 105/54
--- NOTE | 2020-11-08 15:29 | NUR ---
Mara RN and LOAN INTERVIEWER [employer] here this am to visit with pt/dtr regarding dcing from GIP to home or intermediate as the pt is comfortable but stable. She is now eating a little and more alert. VSS. ERAN quirk sander here also to eval for GIP at [facility]. They do not feel pt meets criteria at this time and recommending home or ltc. Pt's son Babak who would be her main cg in the home is now in the hospital as well with heart issues. Given he is the primary cg, Mara is offering 5-10 days of respite at a intermediate to give family time to work on private duty arrangements for care in the home. Dtr Yumiko indicated preference for [facility] [place] as the pt has been there before. Clinical faxed to [facility] and Mara has spoken with Denise in admissions. They can accept today. [employer] (strike team to transport) arranged 2hr window. All parties updated. Orders faxed to both hospice and the intermediate. Dtr at bedside.
--- NOTE | 2020-11-08 16:12 | NUR ---
ASSUMED CARE OF PT AT 0700 THIS MORNNING. PT IS ON COMFORT CARE AND WAITING ON PLACEMENT FOR HOSPICE. PT ASSESSMENT NOTED IN CHART AND OTHERWISE UNREMARKABLE. LEGAL ADMINISTRATOR HAS WORKED WITH HOSPICE AND HAS A LOCATION FOR PT. CALL LIGHT AND OTHER NEEDS ARE WITHIN REACH, FALL PRECAUTIONS ARE IN PLACE. MEDS AND TX GIVEN NEEDED. WILL MONITOR AND NOTE ANY CHANGES. PT WAS PICKED UP BY TRANSPORT AND IS ENROUTE TO FACILITY. CONTACTING [employer] TO FIND OUT THE FACILITY.
== END 2020-11-08 16:00 | disposition hospice, home (50) | DRG 640 ==
LOC: 4S 14:55
PROVIDERS: ADMIT Hospitalist; ATTEND Hospitalist
DX: E87.6 Hypokalemia (principal); E43 Unspecified severe protein-calorie malnutrition; N17.9 Acute kidney failure, unspecified; N39.0 Urinary tract infection, site not specified; Z68.1 Body mass index [BMI] 19.9 or less, adult; E87.0 Hyperosmolality and hypernatremia; R62.7 Adult failure to thrive; R74.8 Abnormal levels of other serum enzymes; I25.10 Atherosclerotic heart disease of native coronary artery without angina pectoris; N18.9 Chronic kidney disease, unspecified; E86.0 Dehydration; E78.5 Hyperlipidemia, unspecified; Z66 Do not resuscitate; R53.81 Other malaise; I35.0 Nonrheumatic aortic (valve) stenosis; E11.22 Type 2 diabetes mellitus with diabetic chronic kidney disease; Z51.5 Encounter for palliative care; I12.9 Hypertensive chronic kidney disease with stage 1 through stage 4 chronic kidney disease, or unspecified chronic kidney disease; H35.30 Unspecified macular degeneration
CPT/HCPCS: 10102